=== PATIENT | male | born 1960 | race African-American/Black ===

== ENCOUNTER 2020-01-02 08:03 | Emergency (ER) | payer MEDICAID ==
[~2020-01-02] VITALS: Ht 188 cm; Wt 95.3 kg
[2020-01-02 08:20] VITALS: BP 139/98
[2020-01-02] MEDS ORDERED: AMLODIPINE BES2.5 MG ORAL (08:23)
[2020-01-02] MEDS ORDERED: LOSARTAN-HCTZ1 EACH ORAL (08:23)
[2020-01-02] MEDS ORDERED: CARVEDILOL3.125 MG ORAL (08:23)
--- NOTE | 2020-01-02 08:26 | NUR ---
ED Nurse Note: Pt walked in from home s/p fall yesterday. Pt took his losartan yesterday, then felt dizzy and fell forward on the cement. Nose and upper lip lacerations noted. Pt denies loss of consciousness. Pt denies blood thinners. Respirations even and unlabored on room air. Vitals stable as documented.
--- NOTE | 2020-01-02 08:35 | Emergency Room Report ---
History of Present Illness General Chief Complaint: Laceration Source: Patient Present Illness HPI Patient presents with complaints of trauma to the facial area reports that he tripped and fell last night 8 PM Patient reports that he has been icing the area went to his primary doctor today and sent to the emergency room Denies any lapse of consciousness denies any neck pain denies any upper extremity weakness or discomfort Denies any abdominal pain denies any palpitations He has pain localized to the upper lip and also the nasal bridge COVID-19 risk:Travel to affect: No Allergies: Coded Allergies: No Known Allergies (Unverified , 01/02/20) Patient History Past Medical History: see triage record Reviewed Nursing Documentation: PMH: Agreed; PSxH: Agreed Nursing Documentation-PMH Past Medical History: No History, Except For Hx Cardiac Problems: Yes Hx Hypertension: Yes Hx Pacemaker: No Hx Asthma: No Hx COPD: No Hx Diabetes: No Hx Cancer: No Hx Gastrointestinal Problems: No Hx Dialysis: No History Of Psychiatric Problem: No Hx Neurological Problems: No Hx Cerebrovascular Accident: No Hx Seizures: No Review of Systems All Other Systems: negative except mentioned in HPI Physical Exam Vital Signs Date Time Temp Pulse Resp B/P (MAP) Pulse Ox O2 Delivery O2 Flow Rate FiO2 01/02/20 08:15 98.8 99 16 139/98 (112) 95 Room Air Sp02 EP Interpretation: reviewed, normal General Appearance: other - No acute distress however obvious facial trauma Head: other - Nasal bridge laceration and contusion Eyes: bilateral eye PERRL ENT: other - 1 cm laceration upper right lip at the bottom aspect of the lip through and through however does not appear to go through the vermilion border. 2 cm skin avulsion mid anterior nasal bridge Neck: supple Respiratory: lungs clear, no respiratory distress, no retraction Cardiovascular #1: regular rate, rhythm Gastrointestinal: non tender, soft Musculoskeletal: normal inspection Neurologic: alert, oriented x3 Psychiatric: normal inspection Skin: other - As above Lymphatic: no adenopathy Procedures Laceration/Wound Repair Laceration/Wound Repair #1: Consent: Emergent Wound Location: face Wound's Depth, Shape: irregular Wound Length (cm): 1 Wound Explored: contaminated Irrigated w/ Saline (ccs): 300 Betadine Prep?: Yes Anesthesia: 1% Lidocaine Volume Anesthetic (ccs): 4 Wound Debrided: moderate Wound Repaired With: sutures Suture Size/Type: 5:0 Number of Sutures: 7 Layer Closure?: Yes Deep Layer Suture Size/Type: 6:0 Number Deep Layer Sutures: 3 Patient Tolerated: Well Complications: None Laceration/Wound Repair #2: Consent: Emergent Wound Location: face Wound Length (cm): 2 Wound Explored: contaminated Irrigated w/ Saline (ccs): 300 Anesthesia: 1% Lidocaine Volume Anesthetic (ccs): 2 Wound Debrided: moderate Suture Size/Type: 5:0 Number of Sutures: 7 Layer Closure?: No Patient Tolerated: Well Complications: None Progress 1)Patient had approximately 1 cm laceration involving the upper lip starting just below the vermilion border going posteriorly through and through. Layered suture was required. This was a complex case requiring extensive bedside care. Patient did tolerate well 2) second laceration is at the nasal bridge total 2 cm length, approximated as above Medical Decision Making Diagnostic Impression: Primary Impression: Facial laceration ER Course Given the patient's history and presentation facial imaging is obtained There is evidence of nasal fracture given the laceration this is considered an open fracture Patient placed on oral antibiotics There is also delayed closure with the patient's injury occurring Over 12 hours prior to arrival Area cleansed and irrigated thoroughly Both lacerations the first 1 involving the Upper lip and the second 1 to the nasal bridge are complex requiring extensive work and repair Patient is discussed with the requirement to follow-up with primary physician for ENT follow-up At this time stable for close outpatient follow-up CT/MRI/US Diagnostic Results CT/MRI/US Diagnostic Results : Impression Facial CTIMPRESSION: Comminuted nasal and right frontal process fractures. Sinusitis Unusual soft tissue calcifications within the face. Etiology is unknown but may be postinflammatory or posttraumatic. Last Vital Signs Date Time Temp Pulse Resp B/P (MAP) Pulse Ox O2 Delivery O2 Flow Rate FiO2 01/02/20 08:20 98.8 82 16 139/98 95 Room Air Status: improved Disposition: HOME, SELF-CARE Condition: Improved Scripts Ibuprofen* (MOTRIN*) 600 Mg Tablet 600 MG ORAL Q8H PRN for For Pain, #20 TAB 0 Refills Prov: Kannan De DO 01/02/20 Amoxicillin/Potassium Clav 875-125* (AUGMENTIN 875-125 TABLET*) 1 Each Tablet 1 TAB ORAL TWICE A DAY, #14 TAB Prov: Kannan De DO 01/02/20 Referrals: NON PHYSICIAN (PCP) Additional Instructions: Patient is provided with the discharge instructions notified to follow up with primary doctor in the next 2-3 days otherwise return to the er with any worsening symptoms. Please note that this report is being documented using [employer] technology. This can lead to erroneous entry secondary to incorrect interpretation by the dictating instrument. Kannan De DO Jan 02, 2020 08:35
--- NOTE | 2020-01-02 08:57 | NUR ---
ED Nurse Note: pt in radiology
--- NOTE | 2020-01-02 09:11 | NUR ---
ED Nurse Note: Pt back from CT
--- NOTE | 2020-01-02 09:47 | Diagnostic Imaging Report ---
Indication: Orbital and maxillofacial trauma and pain Technique: Continuous helical transaxial imaging of the orbits/maxillofacial structures obtained without intravenous contrast administration. Coronal 2-D reformats were also obtained. Study obtained in a Siemens sensation [address] Automatic Exposure Control was utilized. Total Dose length Product (DLP): 398.[address] Dose Index Volume (CTDIvol): 15.3 mGy Comparison: None Findings: There is a comminuted fracture of the nasal bone. There is also fracture of the right frontal process of the maxilla as articulates with the nasal bone. No other fractures are seen. There is mucosal thickening within the paranasal sinuses diffusely particularly the ethmoid and maxillary sinuses consistent with sinusitis. The mastoids are clear bilaterally. The orbits appear normal. There are unusual subcutaneous calcifications over the zygomatic regions bilaterally within the face. The nature of the calcifications is unknown. Small nodes are demonstrated in the submandibular region nonspecific. There are moderate degenerative changes of the visualized part of the cervical spine. IMPRESSION: Comminuted nasal and right frontal process fractures. Sinusitis Unusual soft tissue calcifications within the face. Etiology is unknown but may be postinflammatory or posttraumatic. The CT scanner at [facility] is accredited by the [employer] and the scans are performed using dose optimization techniques as appropriate to a performed exam including Automatic Exposure control.
[2020-01-02 10:00] VITALS: BP 137/88
[2020-01-02] MEDS ORDERED: Lidocaine 1% 10mg/ml/Epi 0.005mg/ml 30ml vial INJ ONE (10:01)
[2020-01-02] MEDS ORDERED: Neosporin Oint Ud Pkt TOPIC ONE (11:15)
[2020-01-02] MEDS ORDERED: Lidocaine 1% 10mg/ml/EPI 0.01mg/ml 30ml INJ ONE (11:15)
[2020-01-02] MEDS ORDERED: Augmentin 875mg Tab ORAL ONE (11:30)
[2020-01-02] MEDS ORDERED: AUGMENTIN 875-1 EAC1 ORAL (11:44)
[2020-01-02] MEDS ORDERED: IBUPROFEN600 MG ORAL (11:44)
[2020-01-02 11:50] VITALS: BP 138/79
--- NOTE | 2020-01-02 11:50 | NUR ---
ER DISCHARGE NOTE: Patient is cleared to be discharged per ERMD, pt is aox4, on room air, with stable vital signs as documented. pt was given dc and prescription instructions, pt was able to verbalize understanding, pt id band removed. pt is able to ambulate with steady gait. pt took all belongings.
== END 2020-01-02 11:50 | disposition home or self-care (01) ==
LOC: EMR 08:30
DX: S01.511A Laceration without foreign body of lip, initial encounter (principal); S02.2XXA Fracture of nasal bones, initial encounter for closed fracture; W01.0XXA Fall on same level from slipping, tripping and stumbling without subsequent striking against object, initial encounter; Y92.9 Unspecified place or not applicable; I10 Essential (primary) hypertension
CPT/HCPCS: 70486; Z7502; 99284